=== PATIENT | male | born 1955 | race Caucasian/White ===

== ENCOUNTER 2024-04-02 19:15 | Emergency (ER) | payer BC, SELFPAY ==
--- NOTE | 2024-04-02 19:24 | ED.GENMED ---
ED Provider Triage
-
Patient seen by provider in Triage?: Seen in Triage
Attestation: A medical screening examination has been initiated by a qualified medical provider. Based on the assessment performed at this time, it has been determined that an emergent medical condition may exist and the patient has been informed
that further medical evaluation and possible additional diagnostic testing may be needed.
HPI: 68 yo male Liver transplant 18 months ago. Today had routine blood work ordered from [facility] and informed his K+ is 6.1 and Creat 2.7 up from baseline of 2.3
GENERAL: Alert , in no apparent distress
EYE: No visual abnormalities.
ENT: No visible abnormalities.
LUNGS: No acute respiratory distress
NEUROLOGICAL: Alert and oriented
SKIN: Skin intact. No visible changes.
MUSCULOSKELETAL: Moving extremities normally
PSYCH: Normal and appropriate interaction.
This is a medical evaluation conducted in person to initiate diagnostic evaluation and provide initial therapeutics. Please see further documentation by the treating clinician.
History of Present Illness
General
Chief Complaint: Abnormal Lab Value
Source: patient and family
Exam Limitations: none
Time Seen by Provider: 04/02/24 20:29
Nursing documentation reviewed up to this point in time: agreed with
History of Present Illness
History of Present Illness:
68 yo male Liver transplant 18 months ago. Today had routine blood work ordered from [facility] and informed his K+ is 6.1 and Creat 2.7 up from baseline of 2.3.
Past History
Past History
ED Past Medical History: HTN, NIDDM and Other (Hemochromatosis/liver disease, hepatocellular carcinoma)
ED Past Surgical History: Cholecystectomy
Social History
Tobacco: Non-smoker
Alcohol: None
Drug: None
Personal:
Living: with family
Employment: Employed
Family History
Family History: Other (Noncontributory)
Review of Systems
Review of Systems
Allergies reviewed?: Yes
All Other Systems: ROS reviewed and negative except as documented in HPI and ROS
Constitutional: Denies fever or fatigue
Respiratory: Denies trouble breathing
Cardiac: Denies chest pain
ABD/GI: Denies abdominal pain
Neurological: Reports no symptoms
Phy Exam
Physical Exam
Physical Exam:
PHYSICAL EXAMINATION:
General: no apparent distress, not acutely ill
Neuro: alert and oriented.
Psychiatric: well kept. interactive and cooperative
Musculoskeletal: Moves with ease
Skin: Warm, pink.
Course
Orders/Labs/Results
Orders:
Orders
04/02/24 19:17
Electrocardiogram (*1) Urgent
Reason for Study: Other
Other Reason for Exam: hyperkalemia
04/02/24 19:18
EKG- Treatment ONCE
04/02/24 19:37
Complete Blood Count/With Diff Urgent
Comprehensive Metabolic Panel Urgent
Abnormal Lab Results
04/02/24
19:37
WBC 4.7 L 10^3/uL
(4.8-10.8)
MCHC 32.1 L g/dL
(33.0-37.0)
RDW 16.9 H %
(11.5-14.5)
Absolute Lymphs (auto) 0.9 L 10^3/uL
(1.2-3.4)
Lymphocytes % 17.9 L %
(20.5-51.1)
Potassium 5.2 H mmol/L
(3.5-5.1)
Chloride 111 H mmol/L
(98-107)
Carbon Dioxide 21 L mmol/L
(22-30)
BUN 56 H mg/dl
(9-20)
Creatinine 2.4 H mg/dL
(0.7-1.3)
04/02/24 19:37
04/02/24 19:37
Vital Signs
Initial and Last Documented VS:
Initial Vital Signs
Temp Pulse Resp BP Pulse Ox
97.9 F 60 20 190/94 99
04/02/24 19:27 04/02/24 19:27 04/02/24 19:27 04/02/24 19:27 04/02/24 19:27
Last Documented Vital Signs
Temp Pulse Resp BP Pulse Ox
97.9 F 60 20 190/94 99
04/02/24 19:27 04/02/24 19:27 04/02/24 19:27 04/02/24 19:27 04/02/24 19:27
MDM/Problems Addressed
MDM/Problems Addressed:
68 yo male Liver transplant 18 months ago. Today had routine blood work ordered from [facility] and informed his K+ is 6.1 and Creat 2.7 up from baseline of 2.3.
K+ is normal now
Most likely hemolyzed specimen
Kidney functions are at his baseline
*Critical Care Note
Total Time (30-74mins, 75-104mins- exclusive of procedures): Not Applicable
ED Attending Note
-
Portions of this chart may have been created with voice recognition software.� Occasional wrong word or��sound alike� substitutions may have occurred due to the inherent limitations of voice recognition software.
Discharge Plan
Departure
Patient Disposition: Home (Routine Discharge)
Date of Disposition: 04/02/24
Time of Disposition: 20:30
Patient with high blood pressure during this ER visit?: No
Condition: Good
Discharge Problem:
Abnormal laboratory test
Prescriptions:
No Action
omeprazole 40 mg Capsule,Delayed Release(Dr/Ec)
40 mg PO HS
insulin lispro [Humalog KwikPen Insulin] 100 unit/mL insulin pen
5 unit SC MEALS
insulin glargine [Lantus Solostar U-100 Insulin] 100 unit/mL (3 mL) insulin pen
5 unit SC HS
acetaminophen 325 mg Tablet
650 mg PO Q8H MDD 2000mg/24hr PRN (Reason: mild pain)
cyclosporine modified 25 mg capsule
25 mg PO Q12H
Rx Instructions:
taken w/ 50mg = 75mg
gabapentin 100 mg capsule
100 mg PO DAILY PRN (Reason: diabetic nerve pain)
atovaquone 750 mg/5 mL suspension
1,500 mg PO DAILY
sirolimus 2 mg tablet
4 mg PO DAILY
rosuvastatin 5 mg tablet
5 mg PO HS
cyclosporine modified 50 mg capsule
50 mg PO Q12H
Rx Instructions:
taken w/ 25mg = 75mg
zinc sulfate 50 mg zinc (220 mg) capsule
50 mg PO DAILY
Activity Restrictions/Additional Instructions:
As we discussed, your potassium is within normal range
Interventions
Interventions:
*Risk Screen - Suicide Last Done: 04/02/24 19:27
*Neglect/Abuse Screening Last Done: 04/02/24 19:27
*Nursing Disposition Last Done: 04/02/24 20:33
Discharge Date and Time
Discharge Date/Time: 04/02/24 20:33
Print Language: SETSWANA
[2024-04-02 19:47] LABS: % Basophils 0.8 % (0-2); % Eosinophils 4.2 % (0-6); % Immature Granulocytes 0.4 % (0-0.5); % Lymphocytes 17.9 % (20.5-51.1); % Monocytes 7.8 % (1.7-9.3); % Neutrophils 68.9 % (42.2-75.2); Absolute Eosinophils 0.2 10^3/uL (0-0.7); Absolute Lymphocytes 0.9 10^3/uL (1.2-3.4); Absolute Monocytes 0.4 10^3/uL (0.1-0.6); Absolute Neutrophils 3.3 10^3/uL (1.4-6.5); Hematocrit 45.5 % (39.0-52.0); Hemoglobin 14.6 g/dL (13.0-18.0); Mean Corp Hgb Conc. 32.1 g/dL (33.0-37.0); Mean Corpuscular Hgb 29.8 pg (27.0-31.0); Mean Corpuscular Volume 92.9 fL (80.0-94.0); Mean Platelet Volume 9.5 fL (7.4-10.4); Nucleated Red Blood Cells % 0 % (-); Platelet Count 135 10^3/uL (130-400); Red Cell Dist. Width 16.9 % (11.5-14.5); White Blood Cell Count 4.7 10^3/uL (4.8-10.8)
[2024-04-02 20:01] LABS: ALT (SGPT) 30 U/L (0-50); AST (SGOT) 36 U/L (17-59); Albumin 4.3 g/dl (3.5-5.0); Alkaline Phosphatase 101 U/L (38-126); Blood Urea Nitrogen 56 mg/dl (9-20); Calcium 9.2 mg/dl (8.4-10.2); Carbon Dioxide 21 mmol/L (22-30); Chloride 111 mmol/L (98-107); Glucose 71 mg/dl (70-99); Potassium 5.2 mmol/L (3.5-5.1); Sodium 145 mmol/L (135-145); Total Bilirubin 0.6 mg/dl (0.2-1.3); Total Protein 7.1 g/dl (6.3-8.2); eGFR 29.03
== END 2024-04-02 20:33 | disposition home or self-care (01) ==
LOC: EMR 19:15
PROVIDERS: Registered Nurse; EMERGENCY PHYSICIAN Emergency Medicine; FAMILY PHYSICIAN Registered Nurse Ambulatory Care
DX: R79.89 Other specified abnormal findings of blood chemistry (principal); I10 Essential (primary) hypertension; E11.9 Type 2 diabetes mellitus without complications; E83.119 Hemochromatosis, unspecified; K21.9 Gastro-esophageal reflux disease without esophagitis; Z94.4 Liver transplant status; Z85.05 Personal history of malignant neoplasm of liver; Z79.84 Long term (current) use of oral hypoglycemic drugs; Z90.49 Acquired absence of other specified parts of digestive tract
CPT/HCPCS: 99283; 80053; 85025; 93005

== ENCOUNTER → 2024-04-24 10:03 | Outpatient (REF) | payer BC, SELFPAY | LOC: RAD 10:03 | PROVIDERS: ATTENDING PHYSICIAN Registered Nurse | DX: R07.89 Other chest pain (principal); W19.XXXA Unspecified fall, initial encounter | CPT/HCPCS: 71101 ==